=== PATIENT | male | born 1990 | race Caucasian/White ===

== ENCOUNTER 2020-07-05 12:12 | Emergency (ER) | payer OTHER | END 2020-07-05 13:45 | disposition home or self-care (01) | LOC: JVIRT 12:12 | DX: Z03.818 Encounter for observation for suspected exposure to other biological agents ruled out (principal) | CPT/HCPCS: C9803; G2012-GT; U0003 ==

== ENCOUNTER 2020-08-16 15:46 | Emergency (ER) | payer BC | END 2020-08-16 16:18 | disposition home or self-care (01) | LOC: JVIRT 15:46 | DX: Z11.52 Encounter for screening for COVID-19 (principal); R51.9 Headache, unspecified | CPT/HCPCS: C9803; G2012-GT; U0003 ==

== ENCOUNTER 2023-01-25 21:16 | Emergency (ER) | payer BC, OTHER ==
[2023-01-25 21:38] VITALS: BP 121/90; PULSE 75; RESP 16; TEMP 98.3; BMI 22.9
[2023-01-25] MEDS ORDERED: IBUPROFEN 600 MG TABLET (FP) PO ONE ×2 (21:42→21:45)
== END 2023-01-25 21:51 | disposition home or self-care (01) ==
LOC: FER 21:16
DX: S16.1XXA Strain of muscle, fascia and tendon at neck level, initial encounter (principal); V49.40XA Driver injured in collision with unspecified motor vehicles in traffic accident, initial encounter
CPT/HCPCS: 99283-25